=== PATIENT | male | born 1955 | race African-American/Black ===

== ENCOUNTER 2020-11-26 14:47 | Inpatient (IN) | payer MEDICAID, OTHER ==
[~2020-11-26] VITALS: Ht 185.4 cm; Wt 108.9 kg
[2020-11-26 16:27] LABS: Urine Bacteria NONE SEEN /hpf (None Seen); Urine Blood 3+ /uL (Negative); Urine Specific Gravity 1.017 (1.001-1.035); Urine WBC 402 /hpf (0 - 3)
[2020-11-26 20:25] LABS: Basophils # (auto) 0.1 10 ^3/uL (0-0.2); Eosinophils # (auto) 0.2 10 ^3/uL (0-0.8); Eosinophils % (auto) 2.4 % (0.0-7.0); Hemoglobin 11.4 g/dL (13.5-17.5); Monocytes # (auto) 0.9 10 ^3/uL (0-1.3); Neutrophils # (auto) 4.6 10 ^3/uL (1.6-8.6)
[2020-11-26 20:28] LABS: Basophils % (auto) 0.9 % (0.0-2.0); Hematocrit 37.9 % (41.0-53.0); Lymphocytes # (auto) 1.1 10 ^3/uL (0.4-5.4); Lymphocytes % (auto) 15.5 % (10.0-50.0); Mean Corpuscular Hemoglobin 20.3 pg (28.0-32.0); Mean Corpuscular Hgb Conc. 30.1 g/dL (32.0-36.0); Mean Corpuscular Volume 67.5 fL (80.0-100.0); Monocytes % (auto) 13.6 % (0.0-12.0); Neutrophils % (auto) 67.6 % (37.0-80.0); Red Blood Cells 5.62 10^6/uL (4.5-5.90); Red Cell Distribution Width 17.8 % (11.8-14.3); White Blood Cell 6.9 10^3/uL (4.4-10.8)
[2020-11-26 20:42] LABS: INR 1.05 (0.9-1.15); Partial Thromboplastin Time 26.2 sec (23.6-33.0)
[2020-11-26 20:44] LABS: Anion Gap 7 (5-15); Blood Urea Nitrogen 16 mg/dL (7-18); Calcium 8.2 mg/dL (8.5-10.1); Carbon Dioxide 25 mmol/L (21-32); Chloride 107 mmol/L (98-107); Glucose 169 mg/dL (74-106); Potassium 4.3 mmol/L (3.5-5.1); Sodium 139 mmol/L (136-145)
[2020-11-26 20:47] LABS: Albumin 3.1 g/dL (3.4-5.0); BUN/Creatinine Ratio 7.8; GFR African American 42 mL/min; GFR Non-African American 35 mL/min
[2020-11-26 21:04] LABS: Alanine Aminotransferase 28 U/L (16-61); Alkaline Phosphatase 87 U/L (45-117); Aspartate Aminotransferase 21 U/L (15-37); Bilirubin, Total 0.3 mg/dL (0.2-1.0); Total Protein 7.5 g/dL (6.4-8.2)
[2020-11-26] MEDS ORDERED: DEXTROSE (50%) 50ML SYRG IV PRN (23:45)
[2020-11-26] MEDS ORDERED: NITROGLYCERIN 0.4 MG SL TAB SL PRN (23:45)
[2020-11-26] MEDS ORDERED: ACETAMINOPHEN 325 MG TAB PO PRN (23:45)
[2020-11-26] MEDS ORDERED: MORPHINE SULFATE INJECTION 2 MG/ML SYRG IV PRN (23:45)
[2020-11-26] MEDS ORDERED: ONDANSETRON HCL 4 MG/2 ML VIAL IV PRN (23:45)
[2020-11-27] MEDS: SOD CHL 0.45% 1,000 ML IV SCH ×2 (01:01→13:05)
[2020-11-27 04:08] LABS: Basophils # (auto) 0.1 10 ^3/uL (0-0.2); Eosinophils # (auto) 0.2 10 ^3/uL (0-0.8); Eosinophils % (auto) 3.5 % (0.0-7.0); Hemoglobin 10.6 g/dL (13.5-17.5); Monocytes # (auto) 0.8 10 ^3/uL (0-1.3)
[2020-11-27 04:09] LABS: Hematocrit 35.1 % (41.0-53.0); Lymphocytes # (auto) 1.5 10 ^3/uL (0.4-5.4); Lymphocytes % (auto) 25.6 % (10.0-50.0); Mean Corpuscular Hemoglobin 20.2 pg (28.0-32.0); Mean Corpuscular Hgb Conc. 30.4 g/dL (32.0-36.0); Mean Corpuscular Volume 66.7 fL (80.0-100.0); Monocytes % (auto) 13.4 % (0.0-12.0); Neutrophils # (auto) 3.4 10 ^3/uL (1.6-8.6); Neutrophils % (auto) 56.5 % (37.0-80.0); Nucleated Red Blood Cells % 0.2 %; Red Blood Cells 5.26 10^6/uL (4.5-5.90); Red Cell Distribution Width 17.7 % (11.8-14.3)
[2020-11-27 04:35] LABS: Albumin 2.8 g/dL (3.4-5.0); BUN/Creatinine Ratio 9.2; Calcium 8.3 mg/dL (8.5-10.1); Potassium 3.9 mmol/L (3.5-5.1)
[2020-11-27 04:38] LABS: Bilirubin, Total 0.3 mg/dL (0.2-1.0); Total Protein 6.9 g/dL (6.4-8.2)
[2020-11-27 05:25] VITALS: BP 160/68
[2020-11-27] MEDS: ACCU-CHEK COMFORT CURVE STRIP VI SCH ×4 (06:37→21:29)
[2020-11-27] MEDS: InsuLIN REG 1unit/0.01ml Soln (100units/ml) SC SCH ×4 (06:38→21:29)
[2020-11-27] MEDS ORDERED: CITA-243 PO (07:06)
[2020-11-27] MEDS ORDERED: AMLO-489 PO (07:06)
[2020-11-27] MEDS ORDERED: PANT40TA57 PO (07:06)
[2020-11-27] MEDS ORDERED: ATOR40TA52 PO (07:06)
[2020-11-27] MEDS ORDERED: GLIP5TAB12 PO (07:06)
[2020-11-27] MEDS ORDERED: LISI-716 PO (07:06)
[2020-11-27 08:58] VITALS: BP 141/62
[2020-11-27] MEDS: cefTRIAXone 1GM/50ML D5W 50 ML IV SCH (09:30)
[2020-11-27] MEDS: FAMOTIDINE (10MG/ML) 2ML VL IV SCH ×2 (09:30→21:29)
[2020-11-27] MEDS: ASPirin 81 mg TAB PO SCH (09:30)
[2020-11-27 13:00] VITALS: BP 140/68
[2020-11-27 17:00] VITALS: BP 140/69
[2020-11-27] MEDS: ATORVASTATIN 20 MG TAB PO SCH (21:29)
[2020-11-27 21:45] VITALS: BP 138/75
[2020-11-28] MEDS: SOD CHL 0.45% 1,000 ML IV SCH ×2 (02:25→17:41)
[2020-11-28 05:30] VITALS: BP 140/77
[2020-11-28] MEDS: InsuLIN REG 1unit/0.01ml Soln (100units/ml) SC SCH ×4 (05:50→22:03)
[2020-11-28] MEDS: ACCU-CHEK COMFORT CURVE STRIP VI SCH ×4 (05:50→22:03)
[2020-11-28 06:42] LABS: Basophils # (auto) 0.1 10 ^3/uL (0-0.2); Basophils % (auto) 1.2 % (0.0-2.0); Eosinophils # (auto) 0.2 10 ^3/uL (0-0.8); Monocytes # (auto) 0.9 10 ^3/uL (0-1.3); Neutrophils # (auto) 2.4 10 ^3/uL (1.6-8.6); Red Cell Distribution Width 17.9 % (11.8-14.3); White Blood Cell 5.1 10^3/uL (4.4-10.8)
[2020-11-28 06:45] LABS: Eosinophils % (auto) 4.4 % (0.0-7.0); Hematocrit 34.4 % (41.0-53.0); Hemoglobin 10.6 g/dL (13.5-17.5); Lymphocytes # (auto) 1.4 10 ^3/uL (0.4-5.4); Lymphocytes % (auto) 28.5 % (10.0-50.0); Mean Corpuscular Hemoglobin 20.6 pg (28.0-32.0); Mean Corpuscular Hgb Conc. 30.8 g/dL (32.0-36.0); Mean Corpuscular Volume 66.9 fL (80.0-100.0); Monocytes % (auto) 17.5 % (0.0-12.0); Neutrophils % (auto) 48.4 % (37.0-80.0); Nucleated Red Blood Cells % 0.2 %; Red Blood Cells 5.15 10^6/uL (4.5-5.90)
[2020-11-28 06:51] LABS: INR 1.08 (0.9-1.15); Partial Thromboplastin Time 26.8 sec (23.6-33.0)
[2020-11-28 06:55] LABS: Albumin 2.8 g/dL (3.4-5.0); Calcium 8.1 mg/dL (8.5-10.1); Magnesium 2.2 mg/dL (1.6-2.6); Potassium 3.9 mmol/L (3.5-5.1)
[2020-11-28 06:58] LABS: BUN/Creatinine Ratio 10.6; Bilirubin, Total 0.4 mg/dL (0.2-1.0); Phosphorus 3.4 mg/dL (2.5-4.90); Total Protein 6.9 g/dL (6.4-8.2)
[2020-11-28 09:00] VITALS: BP 141/73
[2020-11-28] MEDS: cefTRIAXone 1GM/50ML D5W 50 ML IV SCH (09:29)
[2020-11-28] MEDS: FAMOTIDINE (10MG/ML) 2ML VL IV SCH ×2 (09:29→22:02)
[2020-11-28] MEDS: ASPirin 81 mg TAB PO SCH (10:00)
[2020-11-28] MEDS ORDERED: MIDAZOLAM HCL 2MG/2ML 2ml VIAL (1mg/ml) ONE (14:31)
[2020-11-28] MEDS ORDERED: fentaNYL CITRATE 5 ML ONE (14:31)
[2020-11-28] MEDS ORDERED: ONDANSETRON HCL 4 MG/2 ML VIAL ONE (14:34)
[2020-11-28] MEDS ORDERED: LIDOCAINE 2% (LOCAL ANESTH.) PF 5ml SDV ONE (14:34)
[2020-11-28] MEDS ORDERED: PROPOFOL 10 MG/ML 20 ML IV ONE (14:34)
[2020-11-28] MEDS ORDERED: GLYCOPYRROLATE 0.2 MG/ML 1ML VIAL ONE (15:14)
[2020-11-28] MEDS ORDERED: HYDROmorphone HCL 2 MG/ML VL ONE (15:22)
[2020-11-28] MEDS ORDERED: ACCU-CHEK COMFORT CURVE STRIP VI ONE (16:00)
[2020-11-28] MEDS ORDERED: ONDANSETRON HCL 4 MG/2 ML VIAL IV PRN (16:00)
[2020-11-28] MEDS ORDERED: HYDROmorphone HCL 2 MG/ML VL IV PRN (16:00)
[2020-11-28 21:45] VITALS: BP 160/68
[2020-11-28] MEDS: CIPROFLOXACIN 400MG/200ML 200 ML IV SCH (22:02)
[2020-11-28] MEDS: ATORVASTATIN 20 MG TAB PO SCH (22:02)
[2020-11-28] MEDS: MORPHINE SULFATE 4 MG/ML SYR/VIAL IV PRN (22:04)
[2020-11-28] MEDS: hydrALAZINE HCL 20 MG/ML VL IV PRN (22:05)
[2020-11-29] MEDS: HYDROcodone-ACET 5/325MG TAB PO PRN ×2 (00:37→14:33)
[2020-11-29] MEDS: SOD CHL 0.45% 1,000 ML IV SCH ×3 (05:05→21:14)
[2020-11-29 05:22] VITALS: BP 141/73
[2020-11-29] MEDS: ACCU-CHEK COMFORT CURVE STRIP VI SCH ×4 (06:15→21:05)
[2020-11-29] MEDS: InsuLIN REG 1unit/0.01ml Soln (100units/ml) SC SCH ×4 (06:15→21:11)
[2020-11-29 06:53] LABS: Basophils # (auto) 0 10 ^3/uL (0-0.2); Basophils % (auto) 0.2 % (0.0-2.0); Eosinophils # (auto) 0 10 ^3/uL (0-0.8); Eosinophils % (auto) 0.1 % (0.0-7.0); Hemoglobin 10.8 g/dL (13.5-17.5); Lymphocytes # (auto) 0.6 10 ^3/uL (0.4-5.4); Lymphocytes % (auto) 7.6 % (10.0-50.0); Mean Corpuscular Hemoglobin 20.2 pg (28.0-32.0); Mean Corpuscular Volume 67.2 fL (80.0-100.0); Monocytes # (auto) 0.5 10 ^3/uL (0-1.3); Monocytes % (auto) 6.8 % (0.0-12.0); Neutrophils # (auto) 6.7 10 ^3/uL (1.6-8.6); Neutrophils % (auto) 85.3 % (37.0-80.0); Nucleated Red Blood Cells % 0.1 %; Red Blood Cells 5.36 10^6/uL (4.5-5.90); Red Cell Distribution Width 17.7 % (11.8-14.3); White Blood Cell 7.9 10^3/uL (4.4-10.8)
[2020-11-29 06:54] LABS: BUN/Creatinine Ratio 12.8; Calcium 8.6 mg/dL (8.5-10.1); Potassium 4.5 mmol/L (3.5-5.1)
[2020-11-29 09:00] VITALS: BP 147/75
[2020-11-29] MEDS: FAMOTIDINE (10MG/ML) 2ML VL IV SCH (09:00)
[2020-11-29] MEDS: ASPirin 81 mg TAB PO SCH (09:00)
[2020-11-29] MEDS: CIPROFLOXACIN 400MG/200ML 200 ML IV SCH ×2 (09:00→21:14)
[2020-11-29] MEDS: BELLADONNA ALKAL/OPIUM (16.2/30MG) RECT SUPP PR SCH (10:50)
[2020-11-29] MEDS ORDERED: amLODIPine BESYLATE 5 MG TAB PO ONE (11:45)
[2020-11-29 17:00] VITALS: BP 151/76
[2020-11-29] MEDS: ATORVASTATIN 20 MG TAB PO SCH (21:11)
[2020-11-29] MEDS: OXYBUTYNIN CHL 5 MG TAB PO SCH (21:12)
[2020-11-29 22:38] VITALS: BP 154/82
[2020-11-30 05:05] VITALS: BP 138/73
[2020-11-30] MEDS: ACCU-CHEK COMFORT CURVE STRIP VI SCH ×4 (06:25→22:00)
[2020-11-30] MEDS: InsuLIN REG 1unit/0.01ml Soln (100units/ml) SC SCH ×4 (06:25→23:04)
[2020-11-30 07:35] LABS: Hemoglobin 10.1 g/dL (13.5-17.5); Red Cell Distribution Width 17.8 % (11.8-14.3)
[2020-11-30 07:39] LABS: Hematocrit 31.8 % (41.0-53.0); Mean Corpuscular Hemoglobin 21.1 pg (28.0-32.0); Mean Corpuscular Hgb Conc. 31.6 g/dL (32.0-36.0); Mean Corpuscular Volume 66.6 fL (80.0-100.0); Red Blood Cells 4.77 10^6/uL (4.5-5.90); White Blood Cell 6.7 10^3/uL (4.4-10.8)
[2020-11-30 07:45] LABS: Band Neutrophils % (manual) 0; Basophils % (manual) 0 (0.0-2.0); Blast Cells 0; Metamyelocytes % 0; Monocytes % (manual) 0 (0-12); Myelocytes % 0; Promyelocytes % 0; Reactive Lymphocytes 0
[2020-11-30 07:58] LABS: Potassium 3.7 mmol/L (3.5-5.1)
[2020-11-30 08:04] LABS: BUN/Creatinine Ratio 11.1; Calcium 8.1 mg/dL (8.5-10.1)
[2020-11-30 08:43] LABS: Eosinophils % (manual) 1 (0-7); Lymphocytes % (manual) 19 (10.0-50.0)
[2020-11-30 08:47] VITALS: BP 155/76
[2020-11-30] MEDS: MORPHINE SULFATE 4 MG/ML SYR/VIAL IV PRN ×4 (09:03→23:19)
[2020-11-30] MEDS: CIPROFLOXACIN 400MG/200ML 200 ML IV SCH ×2 (09:06→21:55)
[2020-11-30] MEDS: amLODIPine BESYLATE 5 MG TAB PO SCH (09:07)
[2020-11-30] MEDS: OXYBUTYNIN CHL 5 MG TAB PO SCH ×2 (09:07→21:52)
[2020-11-30] MEDS: BELLADONNA ALKAL/OPIUM (16.2/30MG) RECT SUPP PR SCH (09:08)
[2020-11-30 13:00] VITALS: BP 155/92
[2020-11-30] MEDS ORDERED: PANTOPRAZOLE 40 MG TAB PO ONE (14:30)
[2020-11-30 16:45] VITALS: BP 144/83
[2020-11-30 20:00] VITALS: BP 151/74
[2020-11-30] MEDS: ATORVASTATIN 20 MG TAB PO SCH (21:52)
[2020-11-30] MEDS: HYDROcodone-ACET 5/325MG TAB PO PRN (21:53)
[2020-11-30] MEDS: SOD CHL 0.45% 1,000 ML IV SCH (21:56)
[2020-11-30 22:06] VITALS: BP 151/74
[2020-12-01] MEDS: MORPHINE SULFATE 4 MG/ML SYR/VIAL IV PRN ×2 (04:12→18:45)
[2020-12-01 05:09] VITALS: BP 143/74
[2020-12-01 05:32] LABS: Basophils # (auto) 0.1 10 ^3/uL (0-0.2); Basophils % (auto) 1.4 % (0.0-2.0); Eosinophils # (auto) 0.1 10 ^3/uL (0-0.8); Eosinophils % (auto) 2.2 % (0.0-7.0); Hematocrit 34.6 % (41.0-53.0); Hemoglobin 10.4 g/dL (13.5-17.5); Lymphocytes # (auto) 1.4 10 ^3/uL (0.4-5.4); Lymphocytes % (auto) 20.4 % (10.0-50.0); Mean Corpuscular Hemoglobin 20.3 pg (28.0-32.0); Mean Corpuscular Volume 67.7 fL (80.0-100.0); Monocytes # (auto) 1.2 10 ^3/uL (0-1.3); Monocytes % (auto) 17.5 % (0.0-12.0); Neutrophils # (auto) 3.9 10 ^3/uL (1.6-8.6); Neutrophils % (auto) 58.5 % (37.0-80.0); Nucleated Red Blood Cells % 0.1 %; Red Blood Cells 5.11 10^6/uL (4.5-5.90); White Blood Cell 6.6 10^3/uL (4.4-10.8)
[2020-12-01] MEDS: ACCU-CHEK COMFORT CURVE STRIP VI SCH ×4 (07:00→22:44)
[2020-12-01 08:00] VITALS: BP 161/72
[2020-12-01 08:32] VITALS: BP 151/73
[2020-12-01] MEDS: CIPROFLOXACIN 400MG/200ML 200 ML IV SCH ×2 (09:16→22:43)
[2020-12-01] MEDS: OXYBUTYNIN CHL 5 MG TAB PO SCH ×2 (09:16→22:43)
[2020-12-01] MEDS: amLODIPine BESYLATE 5 MG TAB PO SCH (09:20)
[2020-12-01] MEDS: BELLADONNA ALKAL/OPIUM (16.2/30MG) RECT SUPP PR SCH (09:21)
[2020-12-01] MEDS: PANTOPRAZOLE 40 MG TAB PO SCH (09:21)
[2020-12-01] MEDS: InsuLIN REG 1unit/0.01ml Soln (100units/ml) SC SCH ×3 (11:30→22:00)
[2020-12-01 12:38] VITALS: BP 133/71
[2020-12-01] MEDS ORDERED: CITALOPRAM HYDROBR 20 MG TAB PO ONE (14:15)
[2020-12-01 16:49] VITALS: BP 134/64
[2020-12-01 22:00] VITALS: BP 149/73
[2020-12-01] MEDS: ATORVASTATIN 20 MG TAB PO SCH (22:43)
[2020-12-02] MEDS: MORPHINE SULFATE 4 MG/ML SYR/VIAL IV PRN ×4 (00:21→20:35)
[2020-12-02 05:00] VITALS: BP 155/77
[2020-12-02 06:17] LABS: Basophils # (auto) 0.1 10 ^3/uL (0-0.2); Eosinophils # (auto) 0.3 10 ^3/uL (0-0.8); Hemoglobin 9.6 g/dL (13.5-17.5); Lymphocytes # (auto) 1.1 10 ^3/uL (0.4-5.4); Neutrophils # (auto) 3.7 10 ^3/uL (1.6-8.6)
[2020-12-02 06:19] LABS: Basophils % (auto) 0.9 % (0.0-2.0); Eosinophils % (auto) 4.3 % (0.0-7.0); Hematocrit 31.5 % (41.0-53.0); Lymphocytes % (auto) 18.1 % (10.0-50.0); Mean Corpuscular Hemoglobin 20.2 pg (28.0-32.0); Mean Corpuscular Hgb Conc. 30.3 g/dL (32.0-36.0); Mean Corpuscular Volume 66.7 fL (80.0-100.0); Monocytes % (auto) 16.1 % (0.0-12.0); Neutrophils % (auto) 60.6 % (37.0-80.0); Nucleated Red Blood Cells % 0.2 %; Red Blood Cells 4.73 10^6/uL (4.5-5.90); Red Cell Distribution Width 17.9 % (11.8-14.3)
[2020-12-02] MEDS: ACCU-CHEK COMFORT CURVE STRIP VI SCH ×4 (06:24→21:58)
[2020-12-02] MEDS: InsuLIN REG 1unit/0.01ml Soln (100units/ml) SC SCH ×4 (06:24→21:58)
[2020-12-02 06:47] LABS: BUN/Creatinine Ratio 9.7; Calcium 8.2 mg/dL (8.5-10.1); Potassium 3.6 mmol/L (3.5-5.1)
[2020-12-02 08:00] VITALS: BP 154/81
[2020-12-02 09:00] VITALS: BP 154/81
[2020-12-02] MEDS: BELLADONNA ALKAL/OPIUM (16.2/30MG) RECT SUPP PR SCH (10:00)
[2020-12-02] MEDS: CIPROFLOXACIN 400MG/200ML 200 ML IV SCH ×2 (10:09→21:58)
[2020-12-02] MEDS: PANTOPRAZOLE 40 MG TAB PO SCH (10:14)
[2020-12-02] MEDS: CITALOPRAM HYDROBR 20 MG TAB PO SCH (10:14)
[2020-12-02] MEDS: OXYBUTYNIN CHL 5 MG TAB PO SCH ×2 (10:14→21:58)
[2020-12-02] MEDS: amLODIPine BESYLATE 5 MG TAB PO SCH (10:16)
[2020-12-02 13:15] VITALS: BP 156/81
[2020-12-02] MEDS: GABAPENTIN 100 MG CAP PO SCH ×2 (14:28→21:58)
[2020-12-02] MEDS: hydrALAZINE HCL 20 MG/ML VL IV PRN (14:32)
[2020-12-02 17:00] VITALS: BP 151/73
[2020-12-02] MEDS: ATORVASTATIN 20 MG TAB PO SCH (21:58)
[2020-12-02 22:00] VITALS: BP 156/71
[2020-12-03] MEDS: MORPHINE SULFATE 4 MG/ML SYR/VIAL IV PRN ×2 (03:03→09:44)
[2020-12-03 05:00] VITALS: BP 146/67
[2020-12-03 05:25] LABS: Basophils # (auto) 0.1 10 ^3/uL (0-0.2); Basophils % (auto) 0.8 % (0.0-2.0); Eosinophils # (auto) 0.3 10 ^3/uL (0-0.8); Eosinophils % (auto) 4.4 % (0.0-7.0); Hematocrit 32.4 % (41.0-53.0); Lymphocytes # (auto) 1.1 10 ^3/uL (0.4-5.4); Lymphocytes % (auto) 17.2 % (10.0-50.0); Mean Corpuscular Hemoglobin 20.7 pg (28.0-32.0); Mean Corpuscular Hgb Conc. 30.9 g/dL (32.0-36.0); Mean Corpuscular Volume 67.1 fL (80.0-100.0); Monocytes % (auto) 15.4 % (0.0-12.0); Neutrophils # (auto) 4.1 10 ^3/uL (1.6-8.6); Neutrophils % (auto) 62.2 % (37.0-80.0); Nucleated Red Blood Cells % 0.1 %; Red Blood Cells 4.82 10^6/uL (4.5-5.90); Red Cell Distribution Width 17.8 % (11.8-14.3); White Blood Cell 6.5 10^3/uL (4.4-10.8)
[2020-12-03] MEDS: GABAPENTIN 100 MG CAP PO SCH ×2 (06:35→14:28)
[2020-12-03] MEDS: InsuLIN REG 1unit/0.01ml Soln (100units/ml) SC SCH ×2 (06:35→11:30)
[2020-12-03] MEDS: ACCU-CHEK COMFORT CURVE STRIP VI SCH ×2 (06:35→12:32)
[2020-12-03 08:00] VITALS: BP 132/54
[2020-12-03 09:00] VITALS: BP 132/54
[2020-12-03] MEDS: OXYBUTYNIN CHL 5 MG TAB PO SCH (09:42)
[2020-12-03] MEDS: CITALOPRAM HYDROBR 20 MG TAB PO SCH (09:42)
[2020-12-03] MEDS: CIPROFLOXACIN 400MG/200ML 200 ML IV SCH (09:42)
[2020-12-03] MEDS: BELLADONNA ALKAL/OPIUM (16.2/30MG) RECT SUPP PR SCH (09:43)
[2020-12-03] MEDS: PANTOPRAZOLE 40 MG TAB PO SCH (09:43)
[2020-12-03] MEDS: amLODIPine BESYLATE 5 MG TAB PO SCH (09:43)
[2020-12-03 13:00] VITALS: BP 142/72
[2020-12-03 16:37] VITALS: BP 149/70
== END 2020-12-03 16:40 | disposition home or self-care (01) | DRG 446 ==
LOC: ER 14:47 → OVERFLOW 23:50 → WEST WING 11-27 05:51
PROVIDERS: ADMIT Nurse Practitioner Family; ATTEND Internal Medicine
PROC: 0TBB8ZZ Excision of Bladder, Via Natural or Artificial Opening Endoscopic (ICD-10-PCS; principal; 2020-11-28 14:30)
DX: C67.9 Malignant neoplasm of bladder, unspecified (principal); N17.0 Acute kidney failure with tubular necrosis; Z20.822 Contact with and (suspected) exposure to COVID-19; E11.65 Type 2 diabetes mellitus with hyperglycemia; D64.9 Anemia, unspecified; E66.9 Obesity, unspecified; E11.22 Type 2 diabetes mellitus with diabetic chronic kidney disease; E78.5 Hyperlipidemia, unspecified; F17.210 Nicotine dependence, cigarettes, uncomplicated; N18.31 Chronic kidney disease, stage 3a; R79.89 Other specified abnormal findings of blood chemistry; R31.0 Gross hematuria; F32.A Depression, unspecified; N39.0 Urinary tract infection, site not specified; I12.9 Hypertensive chronic kidney disease with stage 1 through stage 4 chronic kidney disease, or unspecified chronic kidney disease; Z85.51 Personal history of malignant neoplasm of bladder; Z68.31 Body mass index [BMI] 31.0-31.9, adult
CPT/HCPCS: 36415; 71045; 74176; 80048; 80053; 81001; 82962; 83735; 84100; 84484; 85007; 85025; 85027; 85610; 85730; 86850; 86900; 86901; 87086; 87426; G0378; J0696; J1815; J2001; J2250; J2405; J2704; J3490

== ENCOUNTER 2020-12-13 14:27 | Emergency (ER) | payer MEDICAID ==
[~2020-12-13] VITALS: Ht 185.4 cm; Wt 106.1 kg
[~2020-12-13 14:27] MED LIST: AMLO-489 PO; ATOR40TA52 PO; CITA-243 PO; GLIP5TAB12 PO; LISI-716 PO; PANT40TA57 PO
[2020-12-13 14:59] VITALS: BP 106/84
[2020-12-13 16:15] LABS: Basophils # (auto) 0.1 10 ^3/uL (0-0.2); Mean Corpuscular Hemoglobin 19.8 pg (28.0-32.0); Monocytes # (auto) 0.8 10 ^3/uL (0-1.3); Neutrophils # (auto) 3.1 10 ^3/uL (1.6-8.6); White Blood Cell 5.4 10^3/uL (4.4-10.8)
[2020-12-13 16:17] LABS: Basophils % (auto) 1.6 % (0.0-2.0); Eosinophils # (auto) 0.1 10 ^3/uL (0-0.8); Eosinophils % (auto) 2.7 % (0.0-7.0); Hematocrit 34.3 % (41.0-53.0); Hemoglobin 10.3 g/dL (13.5-17.5); Lymphocytes # (auto) 1.3 10 ^3/uL (0.4-5.4); Lymphocytes % (auto) 23.9 % (10.0-50.0); Mean Corpuscular Hgb Conc. 30.2 g/dL (32.0-36.0); Mean Corpuscular Volume 65.5 fL (80.0-100.0); Neutrophils % (auto) 57.8 % (37.0-80.0); Red Blood Cells 5.24 10^6/uL (4.5-5.90); Red Cell Distribution Width 17.8 % (11.8-14.3)
[2020-12-13 16:32] LABS: Calcium 8.6 mg/dL (8.5-10.1); Potassium 4.2 mmol/L (3.5-5.1)
[2020-12-13 16:37] LABS: BUN/Creatinine Ratio 6.9; Bilirubin, Total 0.4 mg/dL (0.2-1.0)
[2020-12-13] MEDS ORDERED: PHENAZOPYRIDINE HCL 100 MG TAB PO ONE (20:00)
== END 2020-12-13 22:09 | disposition left against medical advice (07) ==
LOC: ER 14:27
DX: R10.9 Unspecified abdominal pain (principal); R30.0 Dysuria; R31.9 Hematuria, unspecified; I10 Essential (primary) hypertension; E11.9 Type 2 diabetes mellitus without complications; F17.210 Nicotine dependence, cigarettes, uncomplicated; Z79.899 Other long term (current) drug therapy
CPT/HCPCS: 36415; 80053; 85025